=== PATIENT | female | born 1995 | race Caucasian/White ===

== ENCOUNTER 2017-03-17 18:13 | Emergency (ER) | payer OTHER ==
[~2017-03-17] VITALS: Ht 165.1 cm; Wt 67.6 kg
[~2017-03-17 18:13] MED LIST: BACTRIM DS TABL1 TA1 PO; DIFLUCAN PO; DOXYCYCLINE HY100 M1 PO; ELOCON15 G1 TP; FLEXERIL10 M1 PO; HUMALOG100 U/ML SUBQ; LANTUS100 UNITS/ SUBQ; MEDROL DOSEPAK4 MG PO; PREDNISONE PO; TAMIFLU75 M1 DOB; ZITHROMAX1 G/PKT PO
== END 2017-03-17 19:57 | disposition home or self-care (01) ==
LOC: CED 18:13 → CFTX 18:13
DX: O26.86 Pruritic urticarial papules and plaques of pregnancy (PUPPP) (principal); E11.9 Type 2 diabetes mellitus without complications
CPT/HCPCS: 99282